=== PATIENT | female | born 1955 | race Caucasian/White ===

== ENCOUNTER 2019-02-20 17:01 | Emergency (ER) | payer OTHER ==
[~2019-02-20] VITALS: Ht 149.9 cm; Wt 65.8 kg
[2019-02-20 17:06] VITALS: BP_SYST 117
--- NOTE | 2019-02-20 17:13 | NUR ---
ER VIDEO CONTROL OPERATOR HINES examining patient IN TRIAGE ROOM.
--- NOTE | 2019-02-20 17:13 | NUR ---
Patient triaged and placed in waiting room. VSS and patient appears in no acute distress at this time. Accompanied by , awaiting available bed, and MD notified of need for MSE.
--- NOTE | 2019-02-20 17:40 | NUR ---
BROUGHT BACK TO BED #4 AND REPORT GIVEN TO MCKINLEY
--- NOTE | 2019-02-20 17:45 | NUR ---
Patient presented to ER with cough x4 days, Patient A&Ox4, patient ambulatory to ER arrived with . Patient romanian speaking only, afebrile, pain 8/10, cough, nasal congestion, denies N/V/D. Patient states she has had cough, body aches, and nasal congestion for 4 days, patient states she has taken OTC Mucinex with no relief. Patient states she hjas HTN in health hx and takes perscription medication daily.
--- NOTE | 2019-02-20 17:55 | NUR ---
Radiology at bedside for portable x-ray
--- NOTE | 2019-02-20 18:55 | NUR ---
Patient given written and verbal discharge instructions and verbalizes understanding. ER MD discussed with patient the results and treatment provided. Patient in stable condition. ID arm band removed. Rx of Tylenol extrastrength, medrol dosepak, prometazine VC with codeine given. Patient educated on pain management and to follow up with PMD. Pain Scale 5/10 tolerable for patient . Opportunity for questions provided and answered. Medication side effect fact sheet provided.
== END 2019-02-20 18:55 | disposition home or self-care (01) ==
LOC: SED 17:01
DX: J06.9 Acute upper respiratory infection, unspecified (principal); R03.0 Elevated blood-pressure reading, without diagnosis of hypertension
CPT/HCPCS: 71045; 99283